=== PATIENT | female | born 2000 | race Hispanic/Latino ===

== ENCOUNTER 2022-09-05 15:07 | Observation (INO) | payer BC, MEDICAID ==
[~2022-09-05] VITALS: Ht 154.9 cm; Wt 101.2 kg
[2022-09-05 15:33] VITALS: BP 114/63
[2022-09-05 16:39] LABS: APPEARANCE,URINE CLOUDY (CLEAR); BILIRUBIN,URINE NEGATIVE (NEGATIVE); COLOR,URINE COLORLESS (YELLOW); GLUCOSE, URINE (UA) NEGATIVE (NEGATIVE); KETONES,URINE NEGATIVE (NEGATIVE); LEUKOCYTE ESTERASE ,URINE NEGATIVE Leu/uL (NEGATIVE); NITRATE,URINE NEGATIVE (NEGATIVE); OCCULT BLOOD,URINE NEGATIVE (NEGATIVE); PROTEIN,URINE NEGATIVE (NEGATIVE); UROBILINOGEN,URINE 0.2 mg/dL (0.2-1.0)
[2022-09-05 16:45] LABS: BACTERIA,URINE FEW /HPF (None Seen); SQUAMOUS EPITHELIAL CELL,UR MOD /HPF (0-2); WBC,URINE 0-1 /HPF (0-1)
[2022-09-09] MEDS ORDERED: PNV-5 PO (23:03)
[2022-09-09] MEDS ORDERED: FERR-82 PO (23:03)
[2022-09-11] MEDS ORDERED: ACET-2079 PO (07:48)
== END 2022-09-05 17:07 | disposition home or self-care (01) ==
LOC: EDH 15:07 → LDH 15:08
PROVIDERS: ADMIT Obstetrics & Gynecology; ATTEND Obstetrics & Gynecology
DX: O62.9 Abnormality of forces of labor, unspecified (principal); Z3A.39 39 weeks gestation of pregnancy
CPT/HCPCS: 59025; 81001; G0378

== ENCOUNTER → 2023-01-24 | Outpatient (CLI) | payer BC, MEDICAID ==
[~2023-01-24] MED LIST: ACET-2079 PO; FERR-82 PO; PNV-5 PO
== END | disposition home or self-care (01) ==
LOC: RAH 15:38
PROVIDERS: ATTEND Obstetrics & Gynecology
DX: N63.21 Unspecified lump in the left breast, upper outer quadrant (principal); Z80.3 Family history of malignant neoplasm of breast